=== PATIENT | female | born 1995 | race Hispanic/Latino ===

== ENCOUNTER 2024-02-28 01:20 | Inpatient (IN) | payer OTHER, SELFPAY ==
[2024-02-28] MEDS: LR 1000 IV ×2 (02:04→03:30)
[2024-02-28 02:11] LABS: % Basophils 0.4 % (0-2); % Immature Granulocytes 1.3 % (0-0.5); % Lymphocytes 18.2 % (20.5-51.1); % Monocytes 8.1 % (1.7-9.3); Absolute Basophils 0.1 10^3/uL (0-0.2); Absolute Eosinophils 0.1 10^3/uL (0-0.7); Absolute Immature Granulocytes 0.2 10^3/uL (0-0.05); Absolute Lymphocytes 2.5 10^3/uL (1.2-3.4); Absolute Monocytes 1.1 10^3/uL (0.1-0.6); Absolute Neutrophils 9.8 10^3/uL (1.4-6.5); Hematocrit 33.8 % (37.0-47.0); Hemoglobin 11.5 g/dL (12.0-16.0); Mean Corpuscular Hgb 29.6 pg (27.0-31.0); Mean Corpuscular Volume 86.9 fL (81.0-99.0); Mean Platelet Volume 10.7 fL (7.4-10.4); Nucleated Red Blood Cells % 0 %; Platelet Count 206 10^3/uL (130-400); Red Blood Cell Count 3.89 10^6/uL (4.20-5.40); Red Cell Dist. Width 14.5 % (11.5-14.5); White Blood Cell Count 13.8 10^3/uL (4.8-10.8)
[2024-02-28 02:58] VITALS: BMI 25.3
[2024-02-28 02:59] VITALS: BP 105/77
[2024-02-28 03:02] LABS: Hepatitis B Surface Antigen Negative (Negative)
[2024-02-28] MEDS: FENTANYL/BUPIVACAINE 100 EPIDURAL (03:04)
[2024-02-28] MEDS: SUBLIMAZE 100 MCG EPIDURAL (03:04)
[2024-02-28 03:20] LABS: Hepatitis C Antibody Negative (Negative)
[2024-02-28 03:24] LABS: Rubella Low Positive
[2024-02-28] MEDS: TYLENOL 650 MG PO ×2 (09:03→14:32)
[2024-02-28] MEDS: MOTRIN 600 MG PO ×2 (09:04→14:32)
[2024-02-28 13:43] LABS: HIV Combo Negative (Negative)
[2024-02-28 14:01] LABS: Syphilis/T. pallidum Ab Reflex Negative (Negative)
[2024-02-29] MEDS: MOTRIN 600 MG PO (00:08)
[2024-02-29] MEDS: TYLENOL 650 MG PO (00:08)
[2024-02-29 05:06] LABS: Hematocrit 33.6 % (37.0-47.0); Hemoglobin 11.3 g/dL (12.0-16.0)
--- NOTE | 2024-02-29 08:32 | W.DS.TRANS ---
DC Summary - [employer]
-
Discharge Instructions:
Discharge Diagnosis/Procedures term , delivered; s/p
Instructions:
Stand-Alone Forms: LDRP Vaginal Delivery
Changes to Home Medications: No
Discharge Medications:
DC Medications w/original date entered in [facility]
vits [id number] fum 27 mg iron-folic acid 800 mcg tablet ( Vitamin) 1 tab PO DAILY 02/28/24
acetaminophen 325 mg tablet 650 mg (2 x 325 mg) PO Q4HPRN PRN mild pain #0 tabs 02/29/24
ibuprofen 200 mg tablet 600 mg (3 x 200 mg) PO Q6HPRN PRN moderate pain/cramps #0 tabs 02/29/24
Home Medication Changes
Pending Results: No
Total time spent discharging patient (in min): 20
== END 2024-02-29 13:03 | disposition home or self-care (01) | DRG 807 ==
LOC: LDRP 01:20
PROVIDERS: ADMITTING PHYSICIAN Obstetrics & Gynecology
PROC: 10E0XZZ Delivery of Products of Conception, External Approach (ICD-10-PCS; 2024-02-28)
DX: O42.02 Full-term premature rupture of membranes, onset of labor within 24 hours of rupture (principal); Z37.0 Single live birth; Z3A.38 38 weeks gestation of pregnancy
CPT/HCPCS: 85014; 85018; 85025; 86762; 86780; 86803; 86850; 86900; 86901; 87340; 87389